=== PATIENT | male | born 1955 | race Caucasian/White ===

== ENCOUNTER 2025-04-27 10:40 | Outpatient (CLI) | payer MEDICARE, SELFPAY ==
--- OUTSIDE RECORDS SUMMARY | 2025-04-27 10:45 | XMS_ITS | Clinical Summary ---
[facility] Address [address] [place] [address] Care Team Providers Care Forestry Professor Name Role Phone Fabiola Cartagena APRN Primary Care Provider [phone] Allergies No known active allergies Medications tamsulosin (FLOMAX) 0.4 MG capsule 24 hr capsule Take 1 capsule by mouth Every Night. Active clopidogrel (PLAVIX) 75 MG tablet Take 1 tablet by mouth Daily. Active amLODIPine (NORVASC) 10 MG tablet Take 1 tablet by mouth Daily. Active atorvastatin (LIPITOR) 40 MG tablet Take 1 tablet by mouth Daily. Active Multiple Vitamins-Minera ls (PRESERVISION AREDS 2 PO) Take 1 tablet by mouth 2 (two) times a day. Active aspirin EC 325 MG tablet Take 1 tablet by mouth Daily. 30 tablet 6 Active Additional Information Patient taking differently: 81 mgOral Daily, Reported on 03/21/2022 Active Problems Problem Noted Date Diagnosed Date Stenosis of left carotid artery 02/13/2021 Overview (02/28/2021): S/p Lt CEA by Dr. Love 02/28/21 Temporary cerebral vascular dysfunction 01/30/20 21 Carotid stenosis, asymptomatic, bilateral 2019 Carotid artery stenosis Overview (10/15/2016): The patient experienced a TIA which progressed to a stroke on 07/08/2013. CTA of the neck was performed in [place] showing occlusion of the left internal carotid artery and thankfully an intact qawalangin of [place] with collateral circulation to the left middle cerebral artery perfusing less left hemisphere of his brain. Due to his age and this confirmed stroke I decided to pursue a more specific evaluation of his carotid system. On 07/30/2013 a bilateral carotid cerebral DSA was performed. He returns today with no further neurovascular symptoms and for followup of the report. I have obtained and reviewed the bilateral carotid cerebral DSA done 07/30/13. 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 08/03/13 Hypertension Hyperlipidemia BPH (benign prostatic hyperplasia) Gout History of CVA (2012) without residual Family History Medical History Relation Name Comments Heart attack Father Cancer Mother Relation Name Status Comments Father (Age 64) Mother (Age 79) Social History Tobacco Use Types Packs/Day Years Used Date Smoking Tobacco: Former Cigarettes 1 20 0 10/17/1988 - 10/17/2008 Smokeless Tobacco: Never Tobacco Cessation:Counseling Given: Not Answered Alcohol Use Standard Drinks/Week Comments Yes 0 (1 standard drink = 0.6 oz pur e alcohol) Social Abuse Screen Answer Date Recorded Unsafe at Home or Work/School Not on file Feels Threatened by Someone? Not on file 05/2023 Does Anyone Keep You from Co ntacting Others or Doint Things Outside the Home? Not on file 05/27/2023 Physical Sign of Abuse Present Not on file 1 Housing Stability Answer Date Recorded Current Living Arrangements Not on file 05/18 Potentially Unsafe Housing Conditions Not on elma e 05/27/2023 Family and Community Support Answer Jesus e Recorded Help with Day-to-Day Activities Not on file 05/27/2023 Lonely or Isolated Not on file 05/27/2023 Employment Answer Date Recorded Do you want help finding or keeping work or a alvin b? Not on file 05/27/2023 Disabilities Answer Date Recorded Concentrating, Remembering, or Making Decisions Difficulty Not on file 05/27/2023 Doing Errands Independently Difficulty Not on fi le 05/27/2023 Education Answer Date Recorded Help with school or training? 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 Not on file Not on file Last Filed Vital Signs Vital Sign Reading Time Taken Comments Blood Pressure 148/72 04/12/2024 8:39 AM EDT Pulse 68 04/12/2024 8:36 AM EDT Temperature 37.1 C (98.7 F) 04/12/2024 8:36 AM EDT Respiratory Rate 18 03/01/2021 8:27 AM EDT Oxygen Saturation 98% 04/12/2024 8:3 6 AM EDT Inhaled Oxygen Concentration - - Weight 99.7 kg (219 lb 12.8 oz) 04/12/2024 8:36 AM EDT Height 188 cm (6' 2 ) 04/12/2024 8:36 AM EDT patient reported Body Mass Index 28.22 04/12/2024 8:36 AM EDT Plan of Treatment Health Maintenance Due Date Last Done Comments LIPID PANEL 1957 TDAP/TD VACCINES (1 - Tdap) 1976 COLOGUARD 2002 COLON CANCER SCREENING 5 YEA R SIGMOIDOSCOPY 2002 CT COLONOGRAPHY 2002 FECAL OCCULT BLOOD TEST 2002 FIT Testing (1 year) 2002 ANNUAL WELLNESS VISIT 10/08/2017 HEPATITIS C SCREENING 10/08/2017 AAA SCREEN ONCE 2022 Pneumococcal Vaccine 50+ (2 of 2 - PCV) 01/16/2024 01/15/2023 COVID-19 Vaccine (5 - 2024-2 6 season) 2025 02/28/2022, 05/24/2021, 11/09/2020, Additional history exists INFLUENZA VACCINE 05/18/2025 06/24/2023, , 06/11/2022, Additional history exists COLONOSCOPY 11/13/2028 11/13/2018 COLORECTAL CANCER SCREENING 11/13/2028 ZOSTER VACCINE Completed 01/24/2021, 05/16/2020 Medical Devices Implanted Type Area Fishing Tackle Repairer Device Identifier Shelf Expiration Date Model / Serial / Lot [facility]ryn 1x6cm - [id number] Implanted:Qty: 1 on 02/28/2021 by Bird Love MD at [facility] Implant Left: Carotid SYNOVIS 09/12/2025 [id number] / / [id number] Insurance [facility] MEDIC[facility] A ONLY Advance Directives * CPR (Attempt to Resuscitate) (Latest Code Status on File) Date Activated Date Inactivated Comments 02/28/2021 1:57 PM 03/01/2021 1:15 PM Question Answer Comments Code Status (Patient has no pulse and is not breathing): CPR (Attempt to Resuscitate) Medical Interventions (Patie nt has pulse or is breathing): Full Care Teams Forestry Professor Relationship Specialty Start Date End Date Fabiola Cartagena APRN [address] [place] [id number] PCP - General Nurse Practitioner 02/21/20
--- NOTE | 2025-04-27 10:46 | CA_ITS ---
FINAL REPORT TECHNIQUE: Bledsoe scale, color and spectral doppler images of the bilateral carotid arteries were obtained. CLINICAL HISTORY: hx of endarterectomy left side < 10 years ago per patient, HTN, HLD, smoker, DM. COMPARISON: None FINDINGS: Peak systolic velocity in the right internal carotid artery is 101 cm/sec. The internal carotid to common carotid artery ratio is 1.2. There is no significant carotid artery stenosis and mild plaque formation. The right vertebral artery is normal in direction. Peak systolic velocity in the left internal carotid artery is 95 cm/sec. The internal carotid to common carotid artery ratio is 1.0. There is no significant carotid artery stenosis and changes of a prior left endarterectomy. The left vertebral artery is normal in direction. IMPRESSION: No ultrasound evidence of hemodynamically significant carotid artery stenosis. Normal peak systolic velocities and normal internal to common carotid artery ratios bilaterally. Reviewed, Interpreted and Dictated by Anny Perdomo MD Transcribed by Kaylah Lopez Authenticated and [facility]
== END 2025-04-27 23:59 | disposition home or self-care (01) ==
LOC: RT 10:43
PROVIDERS: PCP Emergency Medicine; Visit Provider Nurse Practitioner Family
DX: I65.29 Occlusion and stenosis of unspecified carotid artery (principal); I10 Essential (primary) hypertension; E78.5 Hyperlipidemia, unspecified; E11.9 Type 2 diabetes mellitus without complications; F17.200 Nicotine dependence, unspecified, uncomplicated; Z98.890 Other specified postprocedural states
CPT/HCPCS: 93880